=== PATIENT | male | born 1950 | race Caucasian/White ===

== ENCOUNTER → 2017-03-11 | Day surgery (SDC) | payer MEDICARE, OTHER ==
[~2017-03-11] VITALS: Ht 172.7 cm; Wt 83.9 kg
[~2017-03-11] MED LIST: 0.9% Sodium Chloride 1,000 ML IV PRN; OMEP10CA4 PO; Sodium Chloride LOK Flush 10 mL Syringe IV PRN; TRIA0.1220 PO; fentaNYL-PF 50 mCg/mL 2 mL Inj IVPUSH PRN
[2017-03-11 08:00] VITALS: BP 135/77; PULSE 67; RESP 14
--- NOTE | 2017-03-11 08:48 | PCM.ENDEGD ---
EGD Date of Service: Mar 11, 2017 Physician Krzysztof Ash MD Pre Procedure Diagnosis: Dysphagia Post Procedure Dx & Findings: Normal upper GI Procedure Esophagogastroduodenoscopy PROCEDURE IN DETAIL: After proper sedation, Olympus video endoscope was inserted into patient's mouth and esophagus was successfully intubated. Scope introduced esophagus. Esophagus showed normal shiny whitish mucosa consistent with squamous cell component. Z line was intact at 40 cm from the incisors. Scope further advanced to the stomach. Stomach showed normal shiny mucosa with normal appearing rugae folds without any ulcer mass erosion. Cardia fundus body antrum pylorus were all visualized. Retroflexion was done. Stomach was easily inflated and deflatable using air. Scope further advanced to the distal duodenum. Duodenum revealed normal villous structures with normal appearing folds without any mass ulcer erosion. Impression Normal upper GI Presedation Assessment Risks and Benefits Informed consent was obtained from the patient after all risks and benefits including but not limited to drug reaction, infection, pain, bleeding, perforation, as well as alternatives were discussed. Patient monitoring Continuous pulse oximetry, cardiac monitoring, blood pressure monitoring, IV access, and oxygen at 2L per nasal cannula. Periprocedural Fentanyl: Fentanyl 150mcg Incrementally Midazolam: Midazolam 7mg Incrementally Complications There were no periprocedural complications identified. Post Procedure Plan Post Procedure Recommendations 1. Restrict activities today. 2. Resume normal activities in the morning. 3. Resume medications. 4. GERD behavioral modification: - Avoid fatty, acidic, spicy, large meals - Do not lie down after meals - Do not eat or drink anything for at least 2 1/2 hours before going to bed at night - Discontinue tobacco and alcohol - Decrease or avoid caffeine - Avoid chocolate and mints - Decrease weight - Avoid aspirin and non steroidal anti-inflammatory agents (NSAID) such as Aleve, Advil, Mobic, Naproxen, Ibuprofen, etc 5. Add proton pump inhibitor. Take 30 minutes before 1st meal of the day. 6. Patient informed of normal post procedure side effects as bloating, drowsiness, blood streaking in the stool 7. If gastric biopsy reveal H.pylori, continue with appropriate treatment 8. If small bowel biopsy reveals celiac, continue with appropriate treatment 9. Please don't hesitate to call me with any questions Krzysztof Ash MD Mar 11, 2017 08:48
--- NOTE | 2017-03-11 08:49 | PCM.ENDCOL ---
Colonoscopy Date of Service: Mar 11, 2017 Physician Krzysztof Ash MD Pre Procedure Diagnosis: Screening Post Procedure Dx & Findings: Polyp hemorrhoid diverticuli Procedure Colonoscopy PROCEDURE IN DETAIL: Prep adequate Withdrawal time 14 minutes After unremarkable rectal examination the Olympus video colonoscope was inserted patient's anal canal and was advanced to cecum. Landmarks were identified including the ileocecal valve and appendiceal orifice. Scope was withdrawn systematically. Visualized colonic mucosa showed healthy shiny mucosa with normal healthy-appearing vasculature. In the descending colon there was a 3 mm polyp which was removed completely using cold snare. In the sigmoid colon, there were small and medium-sized diverticula small in numbers. In the rectum retroflexion was done which showed hemorrhoids. Anal canal was inspected carefully on the way out and hemorrhoids noted. Impression Polyp 1 status post complete removal Diverticuli Hemorrhoids Recommendation Repeat colonoscopy 5 years Diverticular diet Presedation Assessment Risks and Benefits Informed consent was obtained from the patient after all risks and benefits including but not limited to drug reaction, infection, pain, bleeding, perforation, as well as alternatives were discussed. Patient monitoring Continuous pulse oximetry, cardiac monitoring, blood pressure monitoring, IV access, and oxygen at 2L per nasal cannula. Complications There were no periprocedural complications identified. Post Procedure Plan Post Procedure Recommendations 1. Restrict activities today. 2. Resume normal activities in the morning. 3. Resume medications. 4. Patient informed of normal post procedure side effects as bloating, drowsiness, blood streaking in the stool. 5. average risk CRCS. If colon polyps come back as: -Hyperplastic- can repeat colonoscopy in 10 years -Tubular adenoma- repeat colonoscopy in 5 years -Tubulovillous/villous adenoma- repeat colonoscopy in 3 years -If any dysplasia- return to clinic as soon as possible 6. Please don't hesitate to call me with any questions. Krzysztof Ash MD Mar 11, 2017 08:49
[2017-03-11 08:51] VITALS: BP 121/74; PULSE 65; RESP 12; O2SAT 95
[2017-03-11 09:24] VITALS: BP 110/61; PULSE 82; RESP 12; O2SAT 98
[2017-03-11 09:30] VITALS: BP 128/85; PULSE 62; RESP 12; O2SAT 97
--- NOTE | 2017-03-13 18:18 | PATH ---
SURGICAL PATHOLOGY Attending Physician:Krzysztof Ash M.D. CASE STATUS: Signed Out PATIENT NAME: ALEX PRESCOTT PID: [id number] : 1950 DATE COLLECTED:03/11/2017 19:30 SPECIMEN: Colon, Polyp CLINICAL HISTORY: POLYP 1). DESCENDING COLON POLYP X 1 FINAL DIAGNOSIS: Descending Colon, Polyp x1, Biopsy: Tubular adenoma. ICD10: D12.4 GROSS DESCRIPTION: The specimen is received in one formalin filled container labeled with the patient's name, sublabeled "descending colon polyp" and consists of 2 portions of tissue which aggregate to 0.4 x 0.4 x 0.2 CM. The specimen is entirely submitted in one cassette. 03/11/2017DC ICD-9 CODES: CPT CODES: 1: 53531 Electronically Signed Out Rani Patrick MD [facility] Pathology [facility], [place] [address] Technical component performed at [facility], [facility] [address], [address]
== END | disposition home or self-care (01) ==
LOC: END 07:39
PROVIDERS: ATTEND Internal Medicine
DX: Z12.11 Encounter for screening for malignant neoplasm of colon (principal); D12.4 Benign neoplasm of descending colon; K57.30 Diverticulosis of large intestine without perforation or abscess without bleeding; K64.8 Other hemorrhoids; R13.10 Dysphagia, unspecified; F32.9 Major depressive disorder, single episode, unspecified
CPT/HCPCS: 43235; 45385; 99153; G0500; J2250; J3010; J7030